=== PATIENT | female | born 1990 | race Caucasian/White ===

== ENCOUNTER 2018-09-15 10:09 | Outpatient (REF) | payer BC, SELFPAY ==
[2018-09-15 22:30] LABS: Cholesterol 193 mg/dL (50-200); HDL Cholesterol 52 mg/dL (40-60); LDL CHOLESTEROL 121 mg/dL (<100); Triglyceride 64 mg/dL (30-150)
== END 2018-09-15 10:29 ==
LOC: NCHCN 10:09
PROVIDERS: Visit Provider Registered Nurse
DX: Z00.00 Encounter for general adult medical examination without abnormal findings (principal); R94.6 Abnormal results of thyroid function studies; E66.9 Obesity, unspecified
CPT/HCPCS: 80061; 83721

== ENCOUNTER 2018-09-24 10:04 | Outpatient (REF) | payer BC, SELFPAY ==
[2018-09-24 21:44] LABS: FREE T4 0.98 ng/dL (0.76-1.46); TSH 3.65 uIU/mL (0.358-3.74)
== END 2018-09-24 10:24 ==
LOC: NCHCN 10:04
PROVIDERS: PCP Registered Nurse; Visit Provider Registered Nurse
DX: Z00.00 Encounter for general adult medical examination without abnormal findings (principal); R94.6 Abnormal results of thyroid function studies; E66.8 Other obesity
CPT/HCPCS: 84439; 84443

== ENCOUNTER 2022-12-17 12:26 | Outpatient (REF) | payer OTHER, SELFPAY ==
[2022-12-17 15:26] LABS: Calculated LDL 113 mg/dL (<100); Cholesterol 170 mg/dL (<200); HDL Cholesterol 48 mg/dL (40-60); TSH (W/Ref FT4) 2.13 uIU/mL (0.36-3.74); Triglyceride 48 mg/dL (<150)
== END 2022-12-17 12:27 | disposition home or self-care (01) ==
LOC: NCHCN 12:26
PROVIDERS: PCP Registered Nurse; Visit Provider Registered Nurse
DX: E03.9 Hypothyroidism, unspecified (principal); Z13.220 Encounter for screening for lipoid disorders
CPT/HCPCS: 80061; 84443

== ENCOUNTER 2025-03-30 14:58 | Outpatient (REF) | payer OTHER, SELFPAY ==
--- NOTE | 2025-03-30 13:30 | PAPFT_PTH ---
PATIENT: Zofia Flores LOC: [facility]#:[id number] AGE/SX: 34/F ROOM: RE03/30/[address]: JOLENE: 1990 BED: DIS: 03/30/2025 SPEC #: [id number] RECD: 03/31/25 13:07 STATUS: CHELSEY BROUSSARD #: [id number] LYDIA: 03/30/25 13:[address]: Britney Leigh DEPT: [facility] Cytology RECD BY: Eulalia Block ENTERED: 03/31/25 13:07 SP TYPE: PAPFT OTHR DR: Zaria Soto Tissues: 1 - CX/ENDOCX FOR PAP SMEARS Procedures: PAP THIN PREP/[facility] Screening HPV DNA PROBE Comments: [id number] (HPV 16 & 18/45)
[2025-03-30 20:44] LABS: Anion Gap 7.0 mmol/L (3-11); BUN 9 mg/dL (7-18); CO2 27.0 mmol/L (21.0-32.0); Calcium 9.0 mg/dL (8.5-10.1); Calculated LDL 136 mg/dL (<100); Chloride 104 mmol/L (98-107); Cholesterol 198 mg/dL (<200); Estimated GFR 97.87 (mL/min/1.73m2); Glucose 95 mg/dL (74-106); HDL Cholesterol 52 mg/dL (>or=50); Potassium 3.9 mmol/L (3.5-5.1); Sodium 138 mmol/L (136-145); TSH (W/Ref FT4) 2.10 uIU/mL (0.36-3.74); Triglyceride 53 mg/dL (<150)
== END 2025-03-30 14:59 | disposition home or self-care (01) ==
LOC: NCHCN 14:58
PROVIDERS: PCP Registered Nurse; Visit Provider Family Medicine
DX: Z12.4 Encounter for screening for malignant neoplasm of cervix (principal)
CPT/HCPCS: 80048; 80061; 88142; 84443; 87624